=== PATIENT | female | born 1965 | race African-American/Black ===

== ENCOUNTER → 2016-11-21 | Outpatient (CLI) | payer BC ==
--- NOTE | 2016-11-21 14:48 | KCIC ---
Bilateral digital screening mammograms: Reason for examination: Routine screening. Comparison is made to previous studies dated back to 08/19/2013. The skin and nipples show no abnormalities. No abnormal axillary lymph nodes are seen. The breast parenchyma is heterogeneously dense. (Breast density: Category C) There continues to be some nodular asymmetry in the posterior superior right breast probably at the 10:00 C position which is unchanged. There are no new dominant masses or architectural distortion. 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 Impression: No evidence of malignancy. Recommend routine screening. Your patient's mammogram demonstrates that she has dense breast tissue (breast density category C or D), which could hide abnormalities, and if she has other risk factors for breast cancer that have been identified, she might benefit from supplemental screening tests that may be suggested by you as her ordering physician. Dense breast tissue, in and of itself, is a relatively common condition. Therefore, this information is not provided to cause undue concern, but rather to raise your awareness and to promote discussion with your patient regarding the presence of other risk factors, in addition to dense breast tissue. Your patient's mammography results will be sent to her. BI-RADS Category 2: Benign. "Our facility is accredited by the [employer] Mammography [employer]." This patient's information has been entered into a reminder system for the patient to be notified with the results of her examination and a target date for the next mammogram. Electronically signed by: Caren Salvador MD (11/21/2016 2:45 PM)
== END | disposition home or self-care (01) ==
LOC: KCIC MAMMO 10:37
PROVIDERS: ATTEND Family Medicine
DX: Z12.31 Encounter for screening mammogram for malignant neoplasm of breast (principal)
CPT/HCPCS: G0202; 77067

== ENCOUNTER → 2017-12-17 | Outpatient (CLI) | payer BC | END | disposition home or self-care (01) | LOC: KCIC MAMMO 12:06 | DX: Z12.31 Encounter for screening mammogram for malignant neoplasm of breast (principal) | CPT/HCPCS: 77063; 77067 ==

== ENCOUNTER → 2017-12-23 | Outpatient (CLI) | payer BC | END | disposition home or self-care (01) | LOC: KCIC US 12:56 | DX: R92.8 Other abnormal and inconclusive findings on diagnostic imaging of breast (principal) | CPT/HCPCS: 76641 ==

== ENCOUNTER → 2018-01-14 | Outpatient (CLI) | payer BC ==
--- NOTE | 2018-01-14 16:21 | RAD ---
Right breast ultrasound, 01/14/2018: History: Abnormal outside ultrasound. The patient's right breast was scanned in preparation for a planned ultrasound guided biopsy. The fibroglandular tissues are quite heterogeneous with patchy hypoechoic and hyperechoic foci throughout the breast. There are scattered areas of acoustic shadowing related to the dense tissues, however, a true mass is not identified in orthogonal planes. An ultrasound target for biopsy is therefore not currently evident. The recent mammograms also showed no discrete right breast mass. The findings were discussed with the patient at time of exam and she is aware of the need for close clinical and imaging surveillance due to the density of her breasts. BI-RADS 2-benign findings
== END | disposition home or self-care (01) ==
LOC: US 13:48
PROVIDERS: ATTEND Surgery
DX: R92.8 Other abnormal and inconclusive findings on diagnostic imaging of breast (principal)
CPT/HCPCS: 76641